=== PATIENT | male | born 1945 | race Caucasian/White ===

== ENCOUNTER 2020-05-28 12:14 | Emergency (ER) | payer MEDICARE, SELFPAY ==
--- NOTE | ~2020-05-28 | US_ITS ---
EXAMINATION: US venous doppler LE RT EXAM DATE: 05/28/2020 13:19 INDICATION: Right leg pain, Boudreaux's cyst. TECHNIQUE: Multiple grayscale, color flow and Doppler images of the right lower extremity deep venous system were obtained and reviewed. There is no prior study for comparison. FINDINGS: The right common femoral, femoral and profunda veins demonstrate normal color flow, respira tory variation, augmentation and compressibility. Compressibility, color flow confirmed within the r ight popliteal, posterior tibial, peroneal, and greater saphenous veins. Boudreaux's cyst measuring 4.8 x 1.8 x 3.0 cm. IMPRESSION: 1. No right lower extremity deep venous thrombosis. 2. Moderate-sized Boudreaux's cyst. Reviewed, dictated and finalized at location B.
[2020-05-28 12:26] VITALS: BP 163/74; PULSE 72; RESP 20; TEMP 36.6; O2SAT 98
[2020-05-28 13:44] LABS: Prothrombin Time 30.9 Seconds (11.1-14.7)
--- NOTE | 2020-05-28 13:45 | ED.EXTPRO ---
HPI - Extremity Problem General Chief complaint: Extremity Problem,Nontraumatic Stated complaint: RIGHT KNEE PAIN Time Seen by Provider: 05/28/20 12:51 Source: patient History of Present Illness HPI Narrative: 75 years old white male, history of right lower extremity deep vein thrombosis, chronic swelling of the right lower leg. Patient came because of new onset of pain at the back of the right knee started 4 days ago, patient denies any trauma. Patient on Coumadin, INR today is 3.0. Related Data Allergies Allergy/AdvReac Type Severity Reaction Status Date / Time No Known Allergies Allergy Verified 05/28/20 12:29 Review of Systems Review of Systems: Narrative: CONSTITUTIONAL: Denies fever, chills, or sweats. EYES: Denies visual changes, redness, or discharge. ENT: Denies rhinorrhea, congestion, sore throat, or otalgia. CARDIOVASCULAR: Denies chest pain, palpitations, or edema. RESPIRATORY: Denies cough or dyspnea. GASTROINTESTINAL: Denies abdominal pain, nausea, vomiting, or diarrhea. GENITOURINARY: Denies dysuria or hematuria. SKIN: Denies rash or itching. MUSCULOSKELETAL: Denies back pain, joint pain, or myalgia. NEUROLOGIC: Denies headache, numbness, or weakness. PSYCHIATRIC: Denies anxiety or depression. [facility] Social History Social History Gender identity (if verbalized by the patient): Male Exam Narrative: Exam Narrative: General appearance: Well-developed, well-nourished Skin: Normal color Head: Normocephalic, nontraumatic Eyes: Clear conjunctiva ENT: Oropharynx normal, ears normal, nose normal Neck: Supple, nontender Chest and respiratory: Airway patent, no respiratory distress, no accessory muscle use Heart: Regular rate/rhythm Abdomen: Soft, nontender, no organomegaly, quiet bowel sounds Vascular: Normal peripheral pulses, normal capillary refill. Musculoskeletal: Right lower leg diffusely swollen, diffuse tenderness at the right knee posteriorly, slightly swollen posteriorly and soft in consistency. Hyperpigmented skin anteriorly. Neurologic: Alert and oriented ?3, [employer] is normal as tested, no gross motor deficit Course Course Emergency Course: Unchanged Vital Signs Vital signs: Vital Signs Temperature 36.6 C 05/28/20 12:26 Pulse Rate 72 05/28/20 12:26 Respiratory Rate 20 06/29/20 12:26 Blood Pressure 163/74 H 05/28/20 12:26 Pulse Oximetry 98 05/28/20 12:26 Temperature 36.6 C 05/28/20 12:26 Pulse Rate 72 05/28/20 12:26 Respiratory Rate 05/28/20 12:26 Blood Pressure 163/74 H 05/28/20 12:26 Pulse Oximetry 98 05/28/20 12:26 MDM - Extremity (Nontraumatic) MDM Narrative Medical decision making narrative: Hematoma versus Boudreaux's cyst is my concern. Venous Doppler ordered. Further plan to follow Differential Diagnosis Differential diagnosis: Likely other (Right lower leg hematoma versus Boudreaux's cyst.) Lab Data Labs: Lab Results 05/28/20 Range/Units 13:26 PT 30.9 H (11.1-14.7) Seconds INR 3.0 Critical Care Time Critical Care Time Critical Care Time: No Discharge Plan Discharge Clinical Impression: Boudreaux's cyst Qualifiers: Laterality: right Qualified Code(s): M71.21 - Synovial cyst of popliteal space [Boudreaux], right knee Patient Disposition: Home, Self-Care Condition: Stable Instructions: Bakers Cyst (ED) Additional Instructions: Return if symptoms are worsening , call your family physician for appointment, take Tylenol as as needed for aches and pain, continue home medications., Keep right leg elevated, cold Dr. Bhatia for follow-up. Follow-up/Referrals: Maxwell Bhatia MD [Physician] - 05/02
[2020-05-28 14:24] VITALS: BP 156/79; PULSE 78; RESP 18; O2SAT 100
== END 2020-05-28 14:25 | disposition home or self-care (01) ==
PROVIDERS: Emergency Provider Emergency Medicine
DX: M71.21 Synovial cyst of popliteal space [Baker], right knee (principal); R60.0 Localized edema; Z79.01 Long term (current) use of anticoagulants
CPT/HCPCS: 36415; 85610; 93971; 99284